=== PATIENT | female | born 1950 | race Caucasian/White ===

== ENCOUNTER 2017-03-18 07:00 | Day surgery (SDC) | payer OTHER ==
--- NOTE | ~2017-03-18 | EGD ---
EGD REPORT [facility] [address] [place] [id number] NAME: JEFFERY RIVERA : [birth year] STATUS : REG [facility] PAT#: [id number] AGE: 66 ADM/REG DATE : 03/18/17 MR#: [id number] REPORT SERV DATE: 03/18/17 DICTATED BY: OSMAR PATTON DATE: 03/18/17 REPORT STATUS : Draft TRANSCRIBED BY: [facility] DATE: 03/18/17 Endoscopy Center Patient Name: Jeffery Rivera Date of : 1950 Attending MD: OSMAR PATTON MD Procedure Date No Time: 03/18/2017 Procedure: Colonoscopy Indications: Colon cancer screening in patient at increased risk: Family history of colon polyps Referring MD: ISATU NERI MD Medicines: as per anesthesia Complications: No immediate complications. Procedure: Pre-Anesthesia Assessment: - ASA Grade Assessment: II - A patient with mild systemic disease. After I obtained informed consent, the scope was passed under direct vision. Throughout the procedure, the patient's blood pressure, pulse, and oxygen saturations were monitored continuously. The PCF [id number] was introduced through the anus and advanced to the cecum, identified by appendiceal orifice and ileocecal valve. The colonoscopy was performed without difficulty. The patient tolerated the procedure. The quality of the bowel preparation was fair. Findings: The perianal and digital rectal examinations were normal. A sessile polyp was found in the cecum. The polyp was 30 mm in size. Biopsies were taken with a cold forceps for histology. A few small and large-mouthed diverticula were found in the sigmoid colon and in the descending colon. Internal hemorrhoids were found during endoscopy and were mild. Impression: - One 30 mm polyp in the cecum. Biopsied. - Diverticulosis in the sigmoid colon and in the descending colon. - Internal hemorrhoids. Recommendation: - Await pathology results. - Refer to a surgeon. Procedure Code(s): --- Professional --- 13475, Colonoscopy, flexible, proximal to splenic flexure; with biopsy, single or multiple EGD REPORT [address] [facility] [place] [id number] NAME: JEFFERY RIVERA : [birth year] STATUS : REG [facility]#: [id number] AGE: 66 ADM/REG DATE : 03/18/17 MR#: [id number] REPORT SERV DATE: 03/18/17 DICTATED BY: OSMAR PATTON. DATE: 03/18/17 REPORT STATUS : Draft TRANSCRIBED BY: 24/7 Card DATE: 03/18/17 Diagnosis Code(s): --- Professional --- D12.0, Benign neoplasm of cecum K64.8, Other hemorrhoids K57.30, Diverticulosis of large intestine without perforation or abscess without bleeding Z12.11, Encounter for screening for malignant neoplasm of colon Z83.71, Family history of colonic polyps CPT copyright 2013 [employer]. All rights reserved. The codes documented in this report are preliminary and upon ore bridge operator review may be revised to meet current compliance requirements. OSMAR PATTON MD 03/18/2017 9:06 AM This report has been signed electronically. Number of Addenda: 0 Note Initiated On: 03/18/2017 7:10 AM Scope Withdrawal Time 0 hours 12 minutes [address] [place], [place] [address] [id number]
[~2017-03-18 07:00] MED LIST: AMB10 PO; ASAB PO; BUSPAR15 M1 PO; CENTRUM TAB1 TAB PO; CIP5 PO; DYAZIDE1 CAP PO; FOLBEE PLU1 PO; FOLTX PO; IMDUR60 PO; KLOR-CON M2020 MEQ PO; L40 PO; LEVAQUIN5T PO; LOFIBRA160 MG PO; LOP25 PO; MAXIMUM D3 PO; MSCONT100 PO; MSCONT60 PO; MULTIPLE VIT PO; PERCOCET 10/3251 TAB PO; PERCOCET1 TA4 PO; PLAVIX PO; PR25 PO; PRAVACHOL80 MG PO; PROBIOTIC PO; VIT D; VITE200U PO; ZOL100 PO
[2017-04-14] MEDS ORDERED: MIRAPEX5 PO (17:35)
[2017-04-14] MEDS ORDERED: SPIRO25 PO (17:35)
[2017-04-14] MEDS ORDERED: BUSPAR15 M1 PO (17:36)
[2017-04-14] MEDS ORDERED: LOP25 PO (17:36)
[2017-04-14] MEDS ORDERED: PLAVIX PO (17:36)
[2017-04-14] MEDS ORDERED: LOFIB160 PO (17:37)
[2017-04-14] MEDS ORDERED: GLUCPH PO (17:37)
[2017-04-14] MEDS ORDERED: TRAZODONE150 MG PO (17:37)
[2017-04-14] MEDS ORDERED: ZOL100 PO (17:39)
[2017-04-14] MEDS ORDERED: IMDUR60 PO (17:39)
[2017-04-14] MEDS ORDERED: LIVALO (17:39)
[2017-04-14] MEDS ORDERED: METANX PO (17:40)
[2017-04-14] MEDS ORDERED: FLAG500TAB PO (17:41)
[2017-04-14] MEDS ORDERED: NEO500 PO (17:41)
[2017-04-14] MEDS ORDERED: ASAB PO (17:42)
[2017-04-14] MEDS ORDERED: VITAMIN D31000 UNIT PO (17:42)
[2017-04-14] MEDS ORDERED: LIVALO4 MG PO (17:43)
[2017-04-14] MEDS ORDERED: ICAPS AREDS SO1 EACH PO (17:45)
[2017-04-14] MEDS ORDERED: PRIN20 PO (17:46)
[2017-04-14] MEDS ORDERED: VITS (18:05)
[2017-04-14] MEDS ORDERED: HAIR (18:05)
[2017-04-14] MEDS ORDERED: [UNRECOGNIZED DRUG - OTHER] (18:05)
[2017-04-14] MEDS ORDERED: SKIN (18:05)
[2017-04-19] MEDS ORDERED: PERCOCET 7.5/321 TAB PO (11:26)
== END 2017-03-18 23:59 | disposition home or self-care (01) ==
LOC: DMU 07:00
PROVIDERS: Internal Medicine Gastroenterology
PROC: 0DBH8ZX Excision of Cecum, Via Natural or Artificial Opening Endoscopic, Diagnostic (ICD-10-PCS; principal; 2017-03-18 07:00)
DX: Z12.11 Encounter for screening for malignant neoplasm of colon (principal); D12.0 Benign neoplasm of cecum; K57.30 Diverticulosis of large intestine without perforation or abscess without bleeding; K64.8 Other hemorrhoids; Z83.71 Family history of colonic polyps; I25.10 Atherosclerotic heart disease of native coronary artery without angina pectoris; Z95.1 Presence of aortocoronary bypass graft; E78.00 Pure hypercholesterolemia, unspecified; G47.33 Obstructive sleep apnea (adult) (pediatric); I73.9 Peripheral vascular disease, unspecified; Z88.0 Allergy status to penicillin; Z88.8 Allergy status to other drugs, medicaments and biological substances; Z79.82 Long term (current) use of aspirin; Z79.899 Other long term (current) drug therapy; Z79.891 Long term (current) use of opiate analgesic
CPT/HCPCS: 82962; 88305